=== PATIENT | female | born 1980 | race African-American/Black ===

== ENCOUNTER 2017-10-27 16:14 | Outpatient (CLI) | payer BC | END 2017-10-27 16:15 | disposition home or self-care (01) | LOC: BICMAMMO 16:14 | PROVIDERS: ATTEND Obstetrics & Gynecology | DX: Z12.31 Encounter for screening mammogram for malignant neoplasm of breast (principal) | CPT/HCPCS: 77063; 77067 ==

== ENCOUNTER 2019-06-06 09:23 | Outpatient (CLI) | payer BC | END 2019-06-06 09:24 | disposition home or self-care (01) | LOC: DTY/OP 09:23 | PROVIDERS: ATTEND Family Medicine | DX: E66.01 Morbid (severe) obesity due to excess calories (principal) | CPT/HCPCS: 97802 ==

== ENCOUNTER 2021-10-19 15:34 | Outpatient (CLI) | payer BC | END 2021-10-19 15:35 | disposition home or self-care (01) | LOC: DTY/OP 15:34 | PROVIDERS: ATTEND Surgery | DX: E66.01 Morbid (severe) obesity due to excess calories (principal) | CPT/HCPCS: 97802 ==